=== PATIENT | male | born 1950 | race Caucasian/White ===

== ENCOUNTER 2017-10-10 17:58 | Inpatient (IN) | END 2017-10-11 18:26 | disposition home or self-care (01) | DRG 247 ==

== ENCOUNTER 2018-04-13 16:04 | Inpatient (IN) | payer MEDICARE, OTHER ==
[~2018-04-13] VITALS: Ht 172.7 cm; Wt 91.7 kg
[~2018-04-13 16:04] MED LIST: ACET-2047 PO; ASPI81TA52 PO; ATOR-2 PO; CARV12.579 NGT; GLIM1TAB2 PO; LINA1TAB5 PO; LISI-471 PO; LORA0.5T PO; NIFE30TA2 PO; NITR0.4T39 SL; Nicotine (14 Mg/24 Hr) TRANSDERM; TICA90TA PO; ZOLP5TAB7 PO
[2018-04-13] MEDS ORDERED: PANTOPRAZOLE IV 80 MG in SOD CHLORIDE 0.9% 100 ML IV STA (16:38)
[2018-04-13] MEDS ORDERED: SOD CHLORIDE 0.9% 500 ML IV STA (16:38)
[2018-04-13] MEDS ORDERED: PANTOPRAZOLE IV 80 MG in SOD CHLORIDE 0.9% 100 ML IVPB STA (16:38)
--- NOTE | 2018-04-13 17:04 | ERD ---
ER Documentation Chief Complaint Chief Complaint Black stool HPI This is a 67-year-old man who is here for melena. The patient states that he has had black stool for 7 days. He states that he is not taking iron, Pepto- Bismol. No blood in his stool. No abdominal pain. He does feel a bit weakness all over but no focal neurological complaints. ROS All systems reviewed and are negative except as per history of present illness. Medications Home Meds Active Scripts Ticagrelor* (Brilinta*) 90 Mg Tablet, 90 MG PO BID for 30 Days, TAB Prov:BRITT BETH MD 10/11/17 Glimepiride* (Glimepiride*) 1 Mg Tablet, 1 MG PO BID, #60 TAB Prov:BRITT BETH MD 10/11/17 Linagliptin-Metformin (Jentadueto) 2.5-1,000 Mg Tablet, 1 TAB PO BID for 60 Days, TAB Prov:BRITT BETH MD 10/11/17 Nifedipine (Procardia Xl) 30 Mg Tab.er.24, 30 MG PO DAILY for 30 Days, TAB Prov:BRITT BETH MD 10/11/17 Lisinopril* (Lisinopril*) 20 Mg Tablet, 20 MG PO BID, #60 TAB Prov:BRITT BETH MD 10/11/17 Carvedilol* (Carvedilol*) 12.5 Mg Tablet, 12.5 MG NGT BID for 30 Days, TAB Prov:BRITT BETH MD 10/11/17 Reported Medications Clopidogrel Bisulfate* (Clopidogrel Bisulfate*) 75 Mg Tablet, 75 MG PO DAILY, #30 TAB 04/13/18 Atorvastatin* (Atorvastatin*) 40 Mg Tablet, 40 MG PO QHS, #30 TAB 04/13/18 Meloxicam* (Mobic*) 15 Mg Tablet, 15 MG PO DAILY, #30 TAB 04/13/18 Aspirin (Low Dose Aspirin) 81 Mg Tablet.dr, 81 MG PO DAILY, #30 TAB 10/10/17 Discontinued Reported Medications Lorazepam* (Lorazepam*) 0.5 Mg Tablet, 0.5 MG PO Q4 PRN for ANXIETY, TAB 10/10/17 Nitroglycerin* (Nitrostat*) 0.4 Mg Tab.subl, 0.4 MG SL Q5MIN PRN for CHEST PAIN, BOTTLE 10/10/17 Acetaminophen* (Acetaminophen*) 650 Mg Tablet, 650 MG PO Q6H PRN for PAIN LEVEL 1-3, #30 TAB 10/10/17 Zolpidem Tartrate* (Zolpidem Tartrate*) 5 Mg Tablet, 5 MG PO QHS PRN for INSOMNIA, #30 TAB 10/10/17 Discontinued Scripts Atorvastatin* (Atorvastatin*) 80 Mg Tablet, 80 MG PO HS for 30 Days, TAB Prov:BRITT BETH MD 10/11/17 [Nicotine (14 Mg/24 Hr)] 1 PATCH PATCH No Conflict Check, 1 PATCH TRANSDERM DAILY for 30 Days Prov:BRITT BETH MD 10/11/17 Allergies Allergies: Coded Allergies: No Known Allergy (Unverified , 04/13/18) PMhx/Soc History of Surgery: No Anesthesia Reaction: No Hx Neurological Disorder: No Hx Respiratory Disorders: Yes (COPD) Hx Cardiac Disorders: Yes (HTN, OK) Hx Psychiatric Problems: No Hx Miscellaneous Medical Probl: No Hx Alcohol Use: No Hx Substance Use: No Hx Tobacco Use: Yes (3 PACKS A DAY) FmHx Family History: No coronary disease Physical Exam Vitals Vital Signs Date Temp Pulse Resp B/P (MAP) Pulse Ox O2 O2 Flow FiO2 Time Delivery Rate 04/13/18 99.0 114 18 123/63 97 16:35 (83) Physical Exam Const: Well-developed, well-nourished Head: Atraumatic, normocephalic Eyes: Normal Conjunctiva, PERRLA, EOMI, normal sclera, no nystagmus ENT: Normal External Ears, Nose and Mouth, moist mucus membranes. Neck: Full range of motion. No meningismus, no lymphadenopathy. Resp: Clear to auscultation bilaterally, no wheezing, rhonchi, rales Cardio: Regular rate and rhythm, no murmurs, S1 S2 present Abd: Soft, non tender x 4, non distended. Normal bowel sounds, no guarding or rebound, no pulsitile abdominal masses or bruits Skin: No petechiae or rashes, no ecchymosis , no maculopapular rash Back: No midline or flank tenderness Ext: No cyanosis, or edema, FROM x 4, normal inspection, neurovascularly intact x 4 Neur: Awake and alert, STR 5/5 x 4, sensation intact x 4, no focal findings, cerebellum intact Psych: Normal Mood and Affect Result Diagram: 04/13/18 1646 04/13/18 1646 Results 24 hrs Laboratory Tests Test 04/13/18 16:46 04/13/18 19:10 White Blood Count 13.1 10^3/ul Red Blood Count 2.30 10^6/ul Hemoglobin 7.3 g/dl Hematocrit 21.7 % Mean Corpuscular Volume 94.3 fl Mean Corpuscular Hemoglobin 31.7 pg Mean Corpuscular Hemoglobin Concent 33.6 g/dl Red Cell Distribution Width 14.7 % Platelet Count 329 10^3/UL Mean Platelet Volume 10.5 fl Immature Granulocytes % 3.100 % Neutrophils % 71.8 % Lymphocytes % 18.7 % Monocytes % 5.7 % Eosinophils % 0.3 % Basophils % 0.4 % Nucleated Red Blood Cells % 0.4 /100WBC Immature Granulocytes # 0.410 10^3/ul Neutrophils # 9.4 10^3/ul Lymphocytes # 2.4 10^3/ul Monocytes # 0.8 10^3/ul Eosinophils # 0.0 10^3/ul Basophils # 0.1 10^3/ul Nucleated Red Blood Cells # 0.1 10^3/ul Prothrombin Time 12.7 Sec Prothrombin Time Ratio 1.0 INR International Normalized Ratio 0.94 Activated Partial Thromboplast Time 21.3 Sec Sodium Level 134 mmol/L Potassium Level 4.8 mmol/L Chloride Level 101 mmol/L Carbon Dioxide Level 21 mmol/L Anion Gap 12 Blood Urea Nitrogen 27 mg/dl Creatinine 0.69 mg/dl Est Glomerular Filtrat Rate mL/min > 60 mL/min Glucose Level 329 mg/dl Calcium Level 8.5 mg/dl Total Bilirubin 0.2 mg/dl Direct Bilirubin 0.00 mg/dl Indirect Bilirubin 0.2 mg/dl Aspartate Amino Transf (AST/SGOT) 26 IU/L Alanine Aminotransferase (ALT/SGPT) 46 IU/L Alkaline Phosphatase 47 IU/L Total Protein 6.0 g/dl Albumin 3.7 g/dl Globulin 2.30 g/dl Albumin/Globulin Ratio 1.60 Bedside Glucose 389 mg/dL Current Medications Medications Dose Sig/Zain Start Time Status Last (Trade) Ordered Route PRN Stop Time Admin Dose Reason Admin Sodium 500 ml @ Q1H STAT 04/13/18 DC 04/13/18 Chloride 500 mls/hr IV 16:38 17:17 04/13/18 17:37 Pantoprazole 100 ml @ ONCE STAT 04/13/18 DC 04/13/18 80 mg/Sodium 400 mls/hr IVPB 16:38 17:18 Chloride 04/13/18 16:52 Pantoprazole 100 ml @ ONCE STAT 04/13/18 04/13/18 80 mg/Sodium 10 mls/hr IV 16:38 17:18 Chloride 04/14/18 02:37 Procedures/MDM Patient was found to be anemic with a hemoglobin of 7.2. I will type and cross 2 units and transfuse. We will admit the patient for GI bleed the patient is on Protonix IV bolus and drip. I paged Dr. Beth and will find out who he wants for GI. Will admit for upper GI bleed and anemia Departure Diagnosis: Primary Impression: GI bleed GI bleed type/associated pathology: unspecified gastrointestinal hemorrhage type Qualified Codes: K92.2 - Gastrointestinal hemorrhage, unspecified Additional Impression: Anemia Anemia type: unspecified type Qualified Codes: D64.9 - Anemia, unspecified Condition: Stable BOB VOGT DO Apr 13, 2018 17:04
[2018-04-13] MEDS ORDERED: ATOR40TA68 PO (17:40)
[2018-04-13] MEDS ORDERED: MELO15TA30 PO (17:40)
[2018-04-13] MEDS ORDERED: CLOP75TA19 PO (17:41)
[2018-04-13] MEDS ORDERED: SOD CHLORIDE 0.9% 1,000 ML IV SCH (19:27)
[2018-04-13] MEDS ORDERED: ACETAMINOPHEN 325 MG TAB PO PRN (19:30)
[2018-04-13] MEDS ORDERED: ONDANSETRON 4 MG INJ IV PRN (19:30)
[2018-04-13] MEDS ORDERED: SOD CHLORIDE 0.9% 1,000 ML IV STA (19:56)
[2018-04-14] VITALS (22 sets, daily range): BP systolic 102–163; BP diastolic 52–80; PULSE 9–118; RESP 16–26; Ht 172.7 cm; Wt 91.7 kg
[2018-04-14] MEDS ORDERED: ONDANSETRON 4 MG INJ IV PRN (01:30)
[2018-04-14] MEDS ORDERED: NACL 0.9% 3 ML SYG IV SCH (01:30)
[2018-04-14] MEDS ORDERED: GLUCAGON 1 MG INJ IM PRN (02:00)
[2018-04-14] MEDS ORDERED: DEXTROSE 50% 50 ML SYRINGE IV PRN ×2 (02:00)
[2018-04-14] MEDS: PANTOPRAZOLE IV 80 MG in SOD CHLORIDE 0.9% 100 ML IV SCH ×4 (02:00→22:00)
[2018-04-14] MEDS ORDERED: GLUCOSE GEL 15 GRAM TUBE PO PRN ×2 (02:00)
[2018-04-14] MEDS ORDERED: GLUCOSE GEL 15 GRAM TUBE BUCCAL PRN (02:00)
[2018-04-14] MEDS: SOD CHLORIDE 0.45% 1,000 ML IV SCH ×2 (02:29→11:36)
--- NOTE | 2018-04-14 07:19 | NUR ---
EOSS: S/P 2units of PRBC's given. No blood transfusion reaction noted or reported. On Protonix drip at this time. Urinalysis sent to lab. Patient inquiring when the GI doctor will come and see him. Dr. Parker called and wanted a consent for EGD with biopsy and to keep patient NPO.
--- NOTE | 2018-04-14 07:45 | CONS ---
Date/Time of Note Date/Time of Note DATE: 04/14/18 TIME: 07:33 Assessment/Plan Assessment/Plan Hospital Course 67 yo male on Brillinta and ASA presents for melena x 7 days 1. Upper GI bleed manifested through melanotic stools -pt on plavix last dose 04/12) and asa 2. Anemia secondary to GI bleed 3. Diabetes mellitus 4. Hypertension 5. H/O NSTEMI in September 2017 with PCI placement x 2 6. 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 Pt agrees to procedure but would like to wait to sign consent until his son arrives. Pt examined and plan of care discussed with Dr. Parker Result Diagram: 04/13/18 1646 04/13/18 1646 Results 24hrs Laboratory Tests Test 04/13/18 16:46 04/13/18 19:10 White Blood Count 13.1 H Red Blood Count 2.30 #L Hemoglobin 7.3 #L Hematocrit 21.7 #L Mean Corpuscular Volume 94.3 Mean Corpuscular Hemoglobin 31.7 Mean Corpuscular Hemoglobin Concent 33.6 Red Cell Distribution Width 14.7 H Platelet Count 329 # Mean Platelet Volume 10.5 H Immature Granulocytes % 3.100 H Neutrophils % 71.8 Lymphocytes % 18.7 Monocytes % 5.7 Eosinophils % 0.3 Basophils % 0.4 Nucleated Red Blood Cells % 0.4 H Immature Granulocytes # 0.410 H Neutrophils # 9.4 H Lymphocytes # 2.4 Monocytes # 0.8 Eosinophils # 0.0 Basophils # 0.1 Nucleated Red Blood Cells # 0.1 H Prothrombin Time 12.7 Prothrombin Time Ratio 1.0 INR International Normalized Ratio 0.94 Activated Partial Thromboplast Time 21.3 L Sodium Level 134 L Potassium Level 4.8 Chloride Level 101 Carbon Dioxide Level 21 Anion Gap 12 Blood Urea Nitrogen 27 H Creatinine 0.69 Est Glomerular Filtrat Rate mL/min > 60 Glucose Level 329 H Calcium Level 8.5 Total Bilirubin 0.2 Direct Bilirubin 0.00 Indirect Bilirubin 0.2 Aspartate Amino Transf (AST/SGOT) 26 Alanine Aminotransferase (ALT/SGPT) 46 Alkaline Phosphatase 47 Total Protein 6.0 L Albumin 3.7 Globulin 2.30 Albumin/Globulin Ratio 1.60 Bedside Glucose 389 H Consultation Date/Type/Reason Admit Date/Time Apr 13, 2018 at 19:28 Hx of Present Illness 67 yo male with h/o DM2, COPD, hypertension and DC in September 2017 with PCI of mid coronary artery, mid LAD presents with melena x 7 days. Pt takes Plavix and ASA at home, last dose 04/12, previously on Brillinta and ASA. Pt denies N/V. States he has intermittent epigastric pain which is burning in nature. He states although he had melena x 7 days he did not start feeling weak until yesterday. Denies CP or SOB. Denies fevers or chills. Denies lower or upper extremity weakness. Denies headaches or visual changes. Pt smokes 3 packs a day. His hgb/hct was 7.3/21.7, received two units prbc. WBC 13.1. INR 0.94 Tachycardia through out night in 110-118. This am HR 73. Protonix gtt. Dr Denny was his test examiner during last admission in September 2017. Past Medical History Medications Current Medications Sodium Chloride 1,000 ml @ 80 mls/hr [id number] IV ; Start 04/13/18 at 19:27; Stop 04/14/18 at 07:56 Ondansetron HCl (Zofran Inj) 4 mg ER BRIDGE PRN IV NAUSEA AND/OR VOMITING; Start 04/13/18 at 19:30; Stop 04/14/18 at 19:29 Acetaminophen (Tylenol Tab) 650 mg ER BRIDGE PRN PO MILD PAIN(1-3)OR ELEVATED TEMP; Start 04/13/18 at 19:30; Stop 04/14/18 at 19:29 Sodium Chloride 1,000 ml @ 75 mls/hr [id number] IV Last administered on 04/14/18at 02:29; Admin Dose 75 MLS/HR; Start 04/14/18 at 01:25 IV Flush (NS 3 ml) 3 ml PER PROTOCOL IV ; Start 04/14/18 at 01:30 Ondansetron HCl (Zofran Inj) 4 mg Q6H PRN IV NAUSEA AND/OR VOMITING; Start 04/14/18 at 01:30 Atorvastatin Calcium (Lipitor) 40 mg QHS PO ; Start 04/14/18 at 21:00 Carvedilol (Coreg) 12.5 mg BID NGT ; Start 04/14/18 at 09:00 Glimepiride (Amaryl) 1 mg BID PO ; Start 04/14/18 at 09:00 Lisinopril (Zestril) 20 mg BID PO ; Start 04/14/18 at 09:00 Nifedipine (Procardia Xl) 30 mg DAILY PO ; Start 04/14/18 at 09:00 Miscellaneous Information 1 tab BID PO ; Start 04/14/18 at 09:00; Status UNV Pantoprazole 80 mg/Sodium Chloride 100 ml @ 10 mls/hr Q10H IV Last administered on 04/14/18at 06:06; Admin Dose 10 MLS/HR; Start 04/14/18 at 02:00 Insulin Aspart (Novolog Insulin Pen) NOVOLOG *MILD* ALGORITHM WITH MEALS BEDTIME SC ; Start 04/14/18 at 07:55 Miscellaneous Information 1 ea NOTE XX ; Start 04/14/18 at 02:00 Glucose (Glutose) 15 gm Q15M PRN PO DECREASED GLUCOSE; Start 04/14/18 at 02:00 Glucose (Glutose) 22.5 gm Q15M PRN PO DECREASED GLUCOSE; Start 04/14/18 at 02:00 Dextrose (D50w Syringe) 25 ml Q15M PRN IV DECREASED GLUCOSE; Start 04/14/18 at 02:00 Dextrose (D50w Syringe) 50 ml Q15M PRN IV DECREASED GLUCOSE; Start 04/14/18 at 02:00 Glucagon (Glucagen) 1 mg Q15M PRN IM DECREASED GLUCOSE; Start 04/14/18 at 02:00 Glucose (Glutose) 15 gm Q15M PRN BUCCAL DECREASED GLUCOSE; Start 04/14/18 at 02:00 Allergies: Coded Allergies: No Known Allergy (Unverified , 04/13/18) Social History Smoking Status: Former smoker Exam/Review of Systems Vital Signs Vitals Vital Signs Date Temp Pulse Resp B/P (MAP) Pulse Ox O2 O2 Flow FiO2 Time Delivery Rate 04/14/18 98.4 78 16 108/53 97 07:26 (71) 04/13/18 Room Air 23:32 Intake and Output 12/27/18 12/27/18 12/28/18 1515:00 23:00 07:00 IntakeIntake Total 633 ml 821 ml OutputOutput Total 350 ml BalanceBalance 633 ml 471 ml Exam Constitutional: alert, oriented Psych: no complaints Head: normocephalic Eyes: nl sclera, PERRL ENMT: mucosa pink and moist Respiratory: clear to auscultation, diminished breath sounds Cardiovascular: regular rate and rhythm Gastrointestinal: soft, non-tender Musculoskeletal: nl gait and stance Extremities: normal pulses Neurological: nl mental status, nl speech Medications Medications Current Medications Sodium Chloride 1,000 ml @ 80 mls/hr [id number] IV ; Start 04/13/18 at 19:27; Stop 04/14/18 at 07:56 Ondansetron HCl (Zofran Inj) 4 mg ER BRIDGE PRN IV NAUSEA AND/OR VOMITING; Start 04/13/18 at 19:30; Stop 04/14/18 at 19:29 Acetaminophen (Tylenol Tab) 650 mg ER BRIDGE PRN PO MILD PAIN(1-3)OR ELEVATED TEMP; Start 04/13/18 at 19:30; Stop 04/14/18 at 19:29 Sodium Chloride 1,000 ml @ 75 mls/hr [id number] IV Last administered on 04/14/18at 02:29; Admin Dose 75 MLS/HR; Start 04/14/18 at 01:25 IV Flush (NS 3 ml) 3 ml PER PROTOCOL IV ; Start 04/14/18 at 01:30 Ondansetron HCl (Zofran Inj) 4 mg Q6H PRN IV NAUSEA AND/OR VOMITING; Start 04/14/18 at 01:30 Atorvastatin Calcium (Lipitor) 40 mg QHS PO ; Start 04/14/18 at 21:00 Carvedilol (Coreg) 12.5 mg BID NGT ; Start 04/14/18 at 09:00 Glimepiride (Amaryl) 1 mg BID PO ; Start 04/14/18 at 09:00 Lisinopril (Zestril) 20 mg BID PO ; Start 04/14/18 at 09:00 Nifedipine (Procardia Xl) 30 mg DAILY PO ; Start 04/14/18 at 09:00 Miscellaneous Information 1 tab BID PO ; Start 04/14/18 at 09:00; Status UNV Pantoprazole 80 mg/Sodium Chloride 100 ml @ 10 mls/hr Q10H IV Last administered on 04/14/18at 06:06; Admin Dose 10 MLS/HR; Start 04/14/18 at 02:00 Insulin Aspart (Novolog Insulin Pen) NOVOLOG *MILD* ALGORITHM WITH MEALS BEDTIME SC ; Start 04/14/18 at 07:55 Miscellaneous Information 1 ea NOTE XX ; Start 04/14/18 at 02:00 Glucose (Glutose) 15 gm Q15M PRN PO DECREASED GLUCOSE; Start 04/14/18 at 02:00 Glucose (Glutose) 22.5 gm Q15M PRN PO DECREASED GLUCOSE; Start 04/14/18 at 02:00 Dextrose (D50w Syringe) 25 ml Q15M PRN IV DECREASED GLUCOSE; Start 04/14/18 at 02:00 Dextrose (D50w Syringe) 50 ml Q15M PRN IV DECREASED GLUCOSE; Start 04/14/18 at 02:00 Glucagon (Glucagen) 1 mg Q15M PRN IM DECREASED GLUCOSE; Start 04/14/18 at 02:00 Glucose (Glutose) 15 gm Q15M PRN BUCCAL DECREASED GLUCOSE; Start 04/14/18 at 02:00 GIOVANNI WEST Apr 14, 2018 07:44
[2018-04-14] MEDS: metFORMIN 500 MG TAB PO SCH ×2 (07:55→17:22)
[2018-04-14] MEDS: LINAGLIPTIN 5 MG TABLET PO SCH ×2 (07:55→17:22)
[2018-04-14] MEDS: GLIMEPIRIDE 2 MG TAB PO SCH ×2 (08:02→20:35)
[2018-04-14] MEDS: NIFEdipine (XL) 30 MG TAB PO SCH (08:53)
[2018-04-14] MEDS: LISINOPRIL 20 MG TAB PO SCH ×2 (08:53→20:36)
[2018-04-14] MEDS ORDERED: LINAGLIPTIN METFORMIN PO SCH (09:00)
[2018-04-14] MEDS: INSULIN ASPART [NOVOLOG] 3 ML PEN SC SCH ×4 (09:35→20:46)
--- NOTE | 2018-04-14 10:17 | NUR ---
AM ASSESSMENT AM ASSESSMENT AND CHANGE OF SHIFT CHARTED AT 1013 FOR 0710
[2018-04-14] MEDS ORDERED: PROPOFOL 40 ML ONE (14:32)
--- NOTE | 2018-04-14 14:52 | NUR ---
PACU PT AWAKE ALERT ROOM AIR NO C/O PAIN NO ACTIVE BLEEDINFHAS IV SITE ON LT AC 22 LILLIAN AND LT WRIST 20 LILLIAN SITE CLEAR
--- NOTE | 2018-04-14 15:40 | NUR ---
PACU PT AWAKE ALERT ROOM AIR NO C/O PAIN BLOOD SUGER WAS CHECKED AND WAS [address] SOY YUEN WAS NOTIFIED REPORT GIVEN TO ROSALVA YUEN NO RESP DISTRESS NO C/O PAIN NO BLEEDING
--- NOTE | 2018-04-14 18:04 | NUR ---
END OF SHIFT DENIES PAIN, EATING DINNER, STABLE FOR HANDOFF
--- NOTE | 2018-04-14 18:17 | CONS ---
DATE OF ADMISSION: 04/13/2018 DATE OF CONSULTATION: 04/14/2018 REASON FOR CONSULTATION: Preoperative evaluation. REQUESTING PHYSICIAN: Dr. Parker and Dr. Martin. HISTORY OF PRESENT ILLNESS: Mr. Barnett is a 67-year-old male with a history of diabetes mellitus , hypertension, recent [id number]-qhkovmonx myocardial infarction in 09/2017 and subsequently at that noemi e underwent PTCA and stent placement x1 to right coronary artery and x1 to mid LAD with drug-eluting stent, was placed on aspirin and Brilinta. The patient now re-presents with melenic stools. Initial ly upon arrival, temperature 99, blood pressure 122/63, pulse 142, respiratory rate 18, saturating 92 %. The patient's labs are notable for white count of 13.1, hemoglobin of 7.3, MCV of 94.3, platelet count of 329; sodium 134, potassium 4.8, creatinine 0.6, BUN 27; INR of 0.94. The patient subsequent ly admitted to the floor, and since admit to the floor denied chest pain and shortness of breath. PAST MEDICAL HISTORY: As above in HPI. MEDICATIONS CURRENTLY IN HOSPITAL: 1. Lipitor 40 mg at bedtime. 2. Carvedilol 12.5 mg p.o. b.i.d. 3. Zestril 20 mg p.o. b.i.d. 4. Procardia 30 mg daily. 5. Tradjenta. 6. Metformin. 7. IV fluid hydration at 50 mL at hour. 8. Aspirin and Brilinta held. ALLERGIES: NO KNOWN DRUG ALLERGIES. SOCIAL HISTORY: Prior tobacco intake. Social EtOH. No illicit drug use. FAMILY HISTORY: No history of sudden cardiac or early CAD. REVIEW OF SYSTEMS: As above in HPI. CONSTITUTIONAL: No fevers or chills. PULMONARY: No current shortness of breath. CARDIOVASCULAR: No chest pain. GASTROINTESTINAL: No vomiting, but GI bleed. GENITOURINARY: No hematuria. MUSCULOSKELETAL: Degenerative joint disease. PSYCHIATRIC: No documented psych history. NEUROLOGIC: No documented history of CVA. ENDOCRINE: Positive history of diabetes mellitus. PHYSICAL EXAMINATION: VITAL SIGNS: Temperature of 98, blood pressure most recently 163/75, pulse 98, respiratory rate 18, saturating 95%. GENERAL: The patient is alert, awake, no acute distress. NECK: JVP approximately 8 to 9 cm of water. CHEST: Fair air movement throughout. HEART: Regular rate and rhythm, normal S1 and S2, I/ systolic murmur, nondisplaced PMI. ABDOMEN: Positive bowel sounds, soft. EXTREMITIES: No significant pitting edema, 1+ pulses bilateral posterior tibial. LABORATORIES: As above in HPI. No further labs for my review at this time. IMAGING STUDIES: As above in HPI. No further imaging studies for my review at this time. ECG: No further electrocardiograms for my review at this time. IMPRESSION: 1. Preoperative evaluation prior to endoscopy. 2. History of percutaneous transluminal coronary angioplasty and stent placement in 09/2017. 3. Gastrointestinal bleed, presenting with melenic stools. 4. Hypertension, currently uncontrolled with holding of antihypertensives. 5. Dyslipidemia. 6. Diabetes mellitus. RECOMMENDATIONS: 1. At this time, we would maintain the patient on telemetry monitoring to follow rhythm and rate con trol closely. 2. We would complete a rule out for myocardial infarction ____ any acute coronary syndrome in the se tting of anemia. 3. Check a 2D echo to further assess this patient's ejection fraction, wall motion, rule out any vitor or abnormalities. 4. ____ at this time has no chest pain, hemodynamically stable. The patient is okay to proceed to e ndoscopy at this time at moderate cardiovascular risk. 5. We would resume all the patient's baseline antihypertensives after endoscopy with Zestril, Procar farrah, and carvedilol. Follow blood pressure closely thereafter. 6. Check a fasting lipid panel and adjust the patient's statin therapy as necessary. 7. Reinitiate Brilinta and aspirin when okay per treating GI service. Thank you for allowing me to take part in the care of this patient. I will continue to follow along very closely with you with further recommendations to be made as the patient progresses through his [facility] clinical course. Dictated By: JANET PAYNE/DENISSE Conf#: [id number] DID#: [id number] CC: IRVING GLASGOW MD; FRANCISCA MARTIN DO; REMI PARKER MD;*EndCC*
--- NOTE | 2018-04-14 19:53 | CONS ---
DATE OF ADMISSION: 04/13/2018 DATE OF CONSULTATION: 04/14/2018 CHIEF COMPLAINT: Gastrointestinal bleed. HISTORY OF PRESENT ILLNESS: This is a 67-year-old male with a past medical history of coronary arter y disease status post PCI, history of diabetes, history of hypertension who presented to [facility] complaining of dark stools for the last seven days and bright red blood one day prio r to admission. The patient states for the last seven days, he has noted dark tarry stools. He had no abdominal pain, no hemoptysis, and no hematemesis. The patient also noted one day prior to admiss ion that he had bright red blood per rectum and as a result, he came to Emergency Room. Upon arrival , the patient had laboratory data that showed hemoglobin of 7.3. The patient was typed and crossed a nd transfused two units of PRBC. The patient was also placed on Protonix drip. Upon my evaluation of the patient at this time, he is currently stable. Denies any fevers, chills, n ausea, vomiting. The patient states that he has been taking his antiplatelet therapy and had no prev ious episodes of GI bleed in the past. PAST MEDICAL HISTORY: History of diabetes, history of hypertension, history of coronary artery disea se, history of chronic obstructive pulmonary disease. PAST SURGICAL HISTORY: Status post cardiac catheterization and PCI. FAMILY HISTORY: No family history of kidney disease. SOCIAL HISTORY: Positive tobacco use. MEDICATIONS: The patient's medications have been reviewed and reconciled. REVIEW OF SYSTEMS: A 14-point review of systems was conducted. Pertinent positives stated in HPI, o therwise negative. PHYSICAL EXAMINATION: VITAL SIGNS: Blood pressure 125/56, respiratory rate 20, pulse 94, temperature 98.6. HEENT: Head normocephalic. NECK: Supple. HEART: Regular rate. LUNGS: Show diminished breath sounds at base. ABDOMEN: Soft, nontender to palpation, without rebound or guarding. EXTREMITIES: Negative for clubbing, cyanosis, edema. DERMATOLOGIC: No rashes. MUSCULOSKELETAL: No joint effusions. NEUROLOGIC: No focal deficits. LABORATORY DATA: Shows white count 10.9, hemoglobin 10.9, and platelet count 225. Sodium 136, potas sium 4.2, BUN 22, creatinine 0.75, glucose is 73. ASSESSMENT AND PLAN: This is a 67-year-old male presenting with: 1. Acute gastrointestinal bleed. Etiology may be secondary to peptic ulcer disease in conjunction w ith antiplatelet therapy. At this point, he is to have a GI consult for possible EGD. Continue carolyn ent on Protonix drip. We will hold anticoagulation antiplatelet therapy at this time. Monitor hemog lobin and hematocrit levels closely. Continue PRBCs as needed. 2. Anemia secondary to acute gastrointestinal bleed. The patient is status post blood transfusion. Continue to monitor hemoglobin and hematocrit levels. Followup with GI. 3. Coronary artery disease with the history of percutaneous coronary intervention and stent placemen t. Plan at this point is to hold antiplatelet therapy. A cardiology consult has been placed for fur ther evaluation. We will follow up recommendations. Monitor closely. 5. Hypertension. Continue current blood pressure regimen. 6. Diabetes. Continue current insulin regimen. 7. History of tobacco use. Continue to monitor. 8. History of chronic obstructive pulmonary disease. The patient is currently compensated. Continu e medical management. Continue nebulizer, supplemental oxygen as needed. 9. Jaundice prophylaxis. Continue proton pump inhibitor and sequential leg squeezers. 10. Leukocytosis, systemic inflammatory response syndrome, etiology is likely reactive. No obvious evidence of infection. Continue to monitor. In addition to pertinent to face time with the patient. Code status and directives. The patient is FULL CODE. Dictated By: FRANCISCA MARTIN DO NR/NTS Conf#: [id number] DID#: [id number] CC: IRVING GLASGOW MD;*EndCC*
[2018-04-14] MEDS: ATORVASTATIN 40 MG TAB PO SCH (20:36)
[2018-04-14] MEDS ORDERED: ZOLPIDEM 5 MG TAB PO PRN (22:30)
[2018-04-15] VITALS (11 sets, daily range): BP systolic 88–117; BP diastolic 48–58; PULSE 69–110; RESP 18–20
[2018-04-15] MEDS: SOD CHLORIDE 0.45% 1,000 ML IV SCH
[2018-04-15] MEDS: PANTOPRAZOLE IV 80 MG in SOD CHLORIDE 0.9% 100 ML IV SCH ×2 (04:16→17:21)
--- NOTE | 2018-04-15 06:32 | NUR ---
HGB 6.8. NOTIFIED DR ALBRECHT. AWAITS REPLY. VS REMAINS STABLE. PT DENIES ANY PAIN. WILL CONTINUE TO MONITOR
[2018-04-15] MEDS: metFORMIN 500 MG TAB PO SCH ×2 (07:52→17:21)
[2018-04-15] MEDS: LINAGLIPTIN 5 MG TABLET PO SCH ×2 (07:52→17:21)
[2018-04-15] MEDS: INSULIN ASPART [NOVOLOG] 3 ML PEN SC SCH ×4 (07:58→20:24)
--- NOTE | 2018-04-15 08:55 | PN ---
Date/Time of Note Date/Time of Note DATE: 04/15/18 TIME: 08:53 Assessment/Plan VTE Prophylaxis Risk score (from Nsg)>0 risk: 7 SCD applied (from Nsg): Yes Pharmacological prophylaxis: other Lines/Catheters IV Catheter Type (from Nrsg): Peripheral IV Assessment/Plan Hospital Course HISTORY OF PRESENT ILLNESS: This is a 67-year-old male with a past medical history of coronary artery disease status post PCI, history of diabetes, history of hypertension who presented to [facility] complaining of dark stools for the last seven days and bright red blood one day prior to admission. The patient states for the last seven days, he has noted dark tarry stools. He had no abdominal pain, no hemoptysis, and no hematemesis. The patient also noted one day prior to admission that he had bright red blood per rectum and as a result, he came to Emergency Room. Upon arrival, the patient had laboratory data that showed hemoglobin of 7.3. The patient was typed and crossed and transfused two units of PRBC. The patient was also placed on Protonix drip. Denies any fevers, chills, nausea, vomiting. The patient states that he has been taking his antiplatelet therapy and had no previous episodes of GI bleed in the past. PAST MEDICAL HISTORY: History of diabetes, history of hypertension, history of coronary artery disease, history of chronic obstructive pulmonary disease. PAST SURGICAL HISTORY: Status post cardiac catheterization and PCI. FAMILY HISTORY: No family history of kidney disease. SOCIAL HISTORY: Positive tobacco use. MEDICATIONS: The patient's medications have been reviewed and reconciled. REVIEW OF SYSTEMS: A 14-point review of systems was conducted. Pertinent positives stated in HPI, otherwise negative. PHYSICAL EXAMINATION: HEENT: Head normocephalic. NECK: Supple. HEART: Regular rate. LUNGS: Show diminished breath sounds at base. ABDOMEN: Soft, nontender to palpation, without rebound or guarding. EXTREMITIES: Negative for clubbing, cyanosis, edema. DERMATOLOGIC: No rashes. MUSCULOSKELETAL: No joint effusions. NEUROLOGIC: No focal deficits. ASSESSMENT AND PLAN: This is a 67-year-old male presenting with: 1. Acute gastrointestinal bleed. Etiology may be secondary to peptic ulcer disease in conjunction with antiplatelet therapy. GI is following the patient. Continue patient on Protonix drip. We will hold anticoagulation antiplatelet therapy at this time until cleared by GI. will transfuse one unit prbc 2. Anemia secondary to acute gastrointestinal bleed. 3. Coronary artery disease with the history of percutaneous coronary intervention and stent placement. Plan at this point is to hold antiplatelet therapy. A cardiology consult has been placed for further evaluation. We will follow up recommendations. Monitor closely. 5. Hypertension. Continue current blood pressure regimen. 6. Diabetes. Continue current insulin regimen. 7. History of tobacco use. Continue to monitor. 8. History of chronic obstructive pulmonary disease. The patient is currently compensated. Continue medical management. Continue nebulizer, supplemental oxygen as needed. 9. Jaundice prophylaxis. Continue proton pump inhibitor and sequential leg squeezers. 10. Leukocytosis, systemic inflammatory response syndrome, etiology is likely reactive. No obvious evidence of infection. Continue to monitor. Result Diagram: 04/15/18 0546 04/15/18 0546 Results 24hrs Laboratory Tests Test 04/14/18 09:53 04/14/18 11:35 04/14/18 16:59 04/14/18 17:24 White Blood 10.9 H Count Red Blood Count 2.59 L Hemoglobin 7.9 L Hematocrit 23.1 L Mean Corpuscular 89.2 Volume Mean Corpuscular 30.5 Hemoglobin Mean Corpuscular 34.2 Hemoglobin Tamia nt Red Cell 15.0 H Distribution Width Platelet Count 225 # Mean Platelet 10.6 H Volume Immature 2.000 H Granulocytes % Neutrophils % 71.9 Lymphocytes % 15.9 Monocytes % 9.7 Eosinophils % 0.2 Basophils % 0.3 Nucleated Red 0.7 H Blood Cells % Immature 0.220 H Granulocytes # Neutrophils # 7.8 H Lymphocytes # 1.7 Monocytes # 1.1 H Eosinophils # 0.0 Basophils # 0.0 Nucleated Red 0.1 H Blood Cells # Sodium Level 136 Potassium Level 4.2 Chloride Level 104 Carbon Dioxide 25 Level Anion Gap 7 Blood Urea 22 H Nitrogen Creatinine 0.75 Est Glomerular > 60 Filtrat Rate mL/min Glucose Level 273 H Calcium Level 8.3 L Total Bilirubin 0.3 Direct Bilirubin 0.00 Indirect 0.3 Bilirubin Aspartate Amino 18 Transf (AST/SGOT ) Alanine 38 Aminotransferase (ALT/SGPT) Alkaline 37 L Phosphatase Total Protein 5.3 L Albumin 3.1 L Globulin 2.20 Albumin/Globulin 1.40 Ratio Bedside Glucose 290 H 242 H Troponin I < 0.012 Test 04/14/18 20:33 04/15/18 00:43 04/15/18 01:43 04/15/18 05:46 Bedside Glucose 238 H 113 Troponin I < 0.012 < 0.012 White Blood 8.8 Count Red Blood Count 2.25 L Hemoglobin 6.8 *L Hematocrit 20.9 L Mean Corpuscular 92.9 Volume Mean Corpuscular 30.2 Hemoglobin Mean Corpuscular 32.5 Hemoglobin Tamia nt Red Cell 15.9 H Distribution Width Platelet Count 193 Mean Platelet 10.2 Volume Immature 3.400 H Granulocytes % Neutrophils % Lymphocytes % Monocytes % Eosinophils % Basophils % Nucleated Red 0.8 H Blood Cells % Immature 0.300 H Granulocytes # Neutrophils # Lymphocytes # Monocytes # Eosinophils # Basophils # Nucleated Red Blood Cells # Sodium Level 140 Potassium Level 4.2 Chloride Level 104 Carbon Dioxide 27 Level Anion Gap 9 Blood Urea 19 Nitrogen Creatinine 0.87 Est Glomerular > 60 Filtrat Rate mL/min Glucose Level 155 # Hemoglobin A1c 7.0 H Calcium Level 8.4 Phosphorus Level 3.7 Magnesium Level 1.8 Total Bilirubin 0.2 Direct Bilirubin 0.00 Indirect 0.2 Bilirubin Aspartate Amino 19 Transf (AST/SGOT ) Alanine 41 Aminotransferase (ALT/SGPT) Alkaline 32 L Phosphatase Total Protein 4.8 L Albumin 2.9 L Globulin 1.90 Albumin/Globulin 1.52 Ratio Triglycerides 208 H Level Cholesterol 96 L Level LDL Cholesterol, 34 Calculated HDL Cholesterol 20 L Cholesterol/HDL 4.8 Ratio Free Thyroxine 3.61 Index Thyroxine (T4) 8.7 Triiodothyronine 41.5 H (T3) Uptake Test 04/15/18 07:45 Bedside Glucose 282 H Exam/Review of Systems Vital Signs Vitals Vital Signs Date Temp Pulse Resp B/P (MAP) Pulse Ox O2 O2 Flow FiO2 Time Delivery Rate 04/15/18 108 08:16 04/15/18 98.6 18 113/58 95 Room Air 07:30 (76) Intake and Output 04/14/18 04/14/18 04/15/18 1515:00 23:00 07:00 IntakeIntake Total 960 ml 700 ml OutputOutput Total 580 ml 1000 ml BalanceBalance 380 ml -300 ml Medications Medications Current Medications Sodium Chloride 1,000 ml @ 50 mls/hr Q20H IV Last administered on 04/15/18at 00:00; Admin Dose 50 MLS/HR; Start 04/14/18 at 01:25 IV Flush (NS 3 ml) 3 ml PER PROTOCOL IV ; Start 04/14/18 at 01:30 Ondansetron HCl (Zofran Inj) 4 mg Q6H PRN IV NAUSEA AND/OR VOMITING; Start 04/14/18 at 01:30 Atorvastatin Calcium (Lipitor) 40 mg QHS PO Last administered on 04/14/18at 20:36; Admin Dose 40 MG; Start 04/14/18 at 21:00 Carvedilol (Coreg) 12.5 mg BID NGT Last administered on 04/14/18at 20:35; Admin Dose 12.5 MG; Start 04/14/18 at 09:00 Glimepiride (Amaryl) 1 mg BID PO Last administered on 04/14/18at 20:35; Admin Dose 1 MG; Start 04/14/18 at 09:00 Lisinopril (Zestril) 20 mg BID PO Last administered on 04/14/18at 20:36; Admin Dose 20 MG; Start 04/14/18 at 09:00 Nifedipine (Procardia Xl) 30 mg DAILY PO ; Start 04/14/18 at 09:00 Pantoprazole 80 mg/Sodium Chloride 100 ml @ 10 mls/hr Q10H IV Last admin istered on 04/15/18at 04:16; Admin Dose 10 MLS/HR; Start 04/14/18 at 02:00 Insulin Aspart (Novolog Insulin Pen) NOVOLOG *MILD* ALGORITHM WITH MEALS BEDTIME SC Last administered on 04/15/18at 07:58; Admin Dose 4 UNIT; Start 04/14/18 at 07:55 Miscellaneous Information 1 ea NOTE XX ; Start 04/14/18 at 02:00 Glucose (Glutose) 15 gm Q15M PRN PO DECREASED GLUCOSE; Start 04/14/18 at 02:00 Glucose (Glutose) 22.5 gm Q15M PRN PO DECREASED GLUCOSE; Start 04/14/18 at 02:00 Dextrose (D50w Syringe) 25 ml Q15M PRN IV DECREASED GLUCOSE; Start 04/14/18 at 02:00 Dextrose (D50w Syringe) 50 ml Q15M PRN IV DECREASED GLUCOSE; Start 04/14/18 at 02:00 Glucagon (Glucagen) 1 mg Q15M PRN IM DECREASED GLUCOSE; Start 04/14/18 at 02:00 Glucose (Glutose) 15 gm Q15M PRN BUCCAL DECREASED GLUCOSE; Start 04/14/18 at 02:00 Linagliptin (Tradjenta) 2.5 mg BID WITH MEALS PO Last administered on 04/15/18 07:52; Admin Dose 2.5 MG; Start 04/14/18 at 07:55 Metformin HCl (Glucophage) 1,000 mg BID WITH MEALS PO Last administered on 04/15/18 07:52; Admin Dose 1,000 MG; Start 04/14/18 at 07:55 Zolpidem Tartrate (Ambien) 5 mg HS PRN PO INSOMNIA Last administered on 04/14/18at 22:39; Admin Dose 5 MG; Start 04/14/18 at 22:30 CHRISTIANO RAE DO Apr 15, 2018 08:55
[2018-04-15] MEDS: GLIMEPIRIDE 2 MG TAB PO SCH ×2 (08:59→20:17)
[2018-04-15] MEDS: LISINOPRIL 20 MG TAB PO SCH ×2 (09:00→20:17)
[2018-04-15] MEDS: NIFEdipine (XL) 30 MG TAB PO SCH (09:00)
[2018-04-15] MEDS ORDERED: ZOLPIDEM 5 MG TAB PO PRN (09:00)
--- NOTE | 2018-04-15 15:27 | CONS ---
Date/Time of Note Date/Time of Note DATE: 04/15/18 TIME: 15:26 Assessment/Plan Assessment/Plan Assessment/Plan Hospital Course 67 yo male on Brillinta and ASA presents for melena x 7 days 1. Upper GI bleed manifested through melanotic stools -pt on plavix last dose 04/12) and asa 2. Anemia secondary to GI bleed 3. Diabetes mellitus 4. Hypertension 5. H/O NSTEMI in September 2017 with PCI placement x 2 6. COPD Plan Continue double dose of PPI We will add Carafate to the present regimen Monitor H&H closely No aspirin or Plavix for the time being Result Diagram: 04/15/18 0546 04/15/18 0546 Results 24hrs Laboratory Tests Test 04/14/18 16:59 04/14/18 17:24 04/14/18 20:33 04/15/18 00:43 Bedside Glucose 242 H 238 H Troponin I < 0.012 < 0.012 Test 04/15/18 01:43 04/15/18 05:46 04/15/18 07:45 04/15/18 12:03 Bedside Glucose 113 282 H 153 White Blood 8.8 Count Red Blood Count 2.25 L Hemoglobin 6.8 *L Hematocrit 20.9 L Mean Corpuscular 92.9 Volume Mean Corpuscular 30.2 Hemoglobin Mean Corpuscular 32.5 Hemoglobin Tamia nt Red Cell 15.9 H Distribution Width Platelet Count 193 Mean Platelet 10.2 Volume Immature 3.400 H Granulocytes % Neutrophils % Segmented 74 Neutrophils % (Manual) Band Neutrophils 4 % (Manual) Lymphocytes % Lymphocytes % 14 L (Manual) Monocytes % Monocytes % 4 (Manual) Eosinophils % Eosinophils % 3 (Manual) Basophils % Myelocytes % 1 H (Manual) Nucleated Red 4 H Blood Cells % Immature 0.300 H Granulocytes # Neutrophils # Neutrophils # 6.5 (Manual) Band Neutrophils 0.3 # Lymphocytes 1.2 (Manual) Lymphocytes # Monocytes # Monocytes # 0.3 (Manual) Eosinophils # Basophils # Myelocytes # 0.0 Nucleated Red Blood Cells # Platelet NORMAL Estimate Polychromasia 2+ Anisocytosis 2+ Sodium Level 140 Potassium Level 4.2 Chloride Level 104 Carbon Dioxide 27 Level Anion Gap 9 Blood Urea 19 Nitrogen Creatinine 0.87 Est Glomerular > 60 Filtrat Rate mL/min Glucose Level 155 # Hemoglobin A1c 7.0 H Calcium Level 8.4 Phosphorus Level 3.7 Magnesium Level 1.8 Total Bilirubin 0.2 Direct Bilirubin 0.00 Indirect 0.2 Bilirubin Aspartate Amino 19 Transf (AST/SGOT ) Alanine 41 Aminotransferase (ALT/SGPT) Alkaline 32 L Phosphatase Troponin I < 0.012 Total Protein 4.8 L Albumin 2.9 L Globulin 1.90 Albumin/Globulin 1.52 Ratio Triglycerides 208 H Level Cholesterol 96 L Level LDL Cholesterol, 34 Calculated HDL Cholesterol 20 L Cholesterol/HDL 4.8 Ratio Free Thyroxine 3.61 Index Thyroxine (T4) 8.7 Triiodothyronine 41.5 H (T3) Uptake Consultation Date/Type/Reason Admit Date/Time Apr 13, 2018 at 19:28 Initial Consult Date 24 HR Interval Summary Free Text/Dictation Patient had one episode of melanotic stool, but he clinically feels much better than yesterday Constitutional: improved Exam/Review of Systems Vital Signs Vitals Vital Signs Date Temp Pulse Resp B/P (MAP) Pulse Ox O2 O2 Flow FiO2 Time Delivery Rate 04/15/18 103 12:05 04/15/18 98.3 18 108/57 95 Room Air 11:36 (74) Intake and Output 04/14/18 04/14/18 04/15/18 1515:00 23:00 07:00 IntakeIntake Total 960 ml 700 ml OutputOutput Total 580 ml 1000 ml BalanceBalance 380 ml -300 ml Exam Constitutional: alert, oriented, well developed Psych: no complaints, nl mood/affect Head: normocephalic, atraumatic Eyes: nl conjunctiva, EOMI, nl lids, nl sclera, PERRL ENMT: nl external ears & nose, nl lips & teeth, nl nasal mucosa & septum Neck: supple, non-tender Respiratory: clear to auscultation, normal air movement Cardiovascular: regular rate and rhythm, nl pulses Gastrointestinal: soft, nl liver, spleen, non-tender Musculoskeletal: nl extremities to inspection, nl gait and stance Extremities: normal pulses Neurological: [employer] CL[employer] II-XII intact, nl mental status, nl speech, nl strength Skin: nl turgor; No rash or lesions Lymph: nl lymph nodes Medications Medications Current Medications Sodium Chloride 1,000 ml @ 50 mls/hr Q20H IV Last administered on 04/15/18at 00:00; Admin Dose 50 MLS/HR; Start 04/14/18 at 01:25 IV Flush (NS 3 ml) 3 ml PER PROTOCOL IV ; Start 04/14/18 at 01:30 Ondansetron HCl (Zofran Inj) 4 mg Q6H PRN IV NAUSEA AND/OR VOMITING; Start 1 06/15/17 at 01:30 Atorvastatin Calcium (Lipitor) 40 mg QHS PO Last administered on 04/14/18at 20:36; Admin Dose 40 MG; Start 04/14/18 at 21:00 Carvedilol (Coreg) 12.5 mg BID NGT Last administered on 04/15/18at 08:59; Admin Dose 12.5 MG; Start 04/14/18 at 09:00 Glimepiride (Amaryl) 1 mg BID PO Last administered on 04/15/18at 08:59; Admin Dose 1 MG; Start 04/14/18 at 09:00 Lisinopril (Zestril) 20 mg BID PO Last administered on 04/15/18at 09:00; Admin Dose 20 MG; Start 04/14/18 at 09:00 Nifedipine (Procardia Xl) 30 mg DAILY PO Last administered on 04/15/18at 09:00; Admin Dose 30 MG; Start 04/14/18 at 09:00 Pantoprazole 80 mg/Sodium Chloride 100 ml @ 10 mls/hr Q10H IV Last administere d on 04/15/18at 04:16; Admin Dose 10 MLS/HR; Start 04/14/18 at 02:00 Insulin Aspart (Novolog Insulin Pen) NOVOLOG *MILD* ALGORITHM WITH MEALS BEDTIME SC Last administered on 04/15/18at 12:22; Admin Dose 1 UNIT; Start 04/14/18 at 07:55 Miscellaneous Information 1 ea NOTE XX ; Start 04/14/18 at 02:00 Glucose (Glutose) 15 gm Q15M PRN PO DECREASED GLUCOSE; Start 04/14/18 at 02:00 Glucose (Glutose) 22.5 gm Q15M PRN PO DECREASED GLUCOSE; Start 04/14/18 at 02:00 Dextrose (D50w Syringe) 25 ml Q15M PRN IV DECREASED GLUCOSE; Start 04/14/18 at 02:00 Dextrose (D50w Syringe) 50 ml Q15M PRN IV DECREASED GLUCOSE; Start 04/14/18 at 02:00 Glucagon (Glucagen) 1 mg Q15M PRN IM DECREASED GLUCOSE; Start 04/14/18 at 02:00 Glucose (Glutose) 15 gm Q15M PRN BUCCAL DECREASED GLUCOSE; Start 04/14/18 at 02:00 Linagliptin (Tradjenta) 2.5 mg BID WITH MEALS PO Last administered on 04/15/18at 07:52; Admin Dose 2.5 MG; Start 04/14/18 at 07:55 Metformin HCl (Glucophage) 1,000 mg BID WITH MEALS PO Last administered on 04/15/18at 07:52; Admin Dose 1,000 MG; Start 04/14/18 at 07:55 Zolpidem Tartrate (Ambien) 5 mg HS PRN PO INSOMNIA Last administered on 04/14/18at 22:39; Admin Dose 5 MG; Start 04/14/18 at 22:30 Zolpidem Tartrate (Ambien) 5 mg HS MAY REPEAT X 1 PRN PO INSOMNIA; Start 04/15/18 at 09:00 REMI FAJARDO MD Apr 15, 2018 15:27
--- NOTE | 2018-04-15 15:47 | CONS ---
Date/Time of Note Date/Time of Note DATE: 04/15/18 TIME: 15:43 Assessment/Plan Assessment/Plan Hospital Course IMPRESSION: 1. 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 History of percutaneous transluminal coronary angioplasty and stent placement in 09/2017. 3. Gastrointestinal bleed, presenting with melenic stools. 4. Hypertension- on lower end but tolerating antihypertensivers 5. Dyslipidemia. 6. Diabetes mellitus. Recc: -Tele -continue statin -Continue coreg/ACEI/procardia and [id number] BP closely -PER GI will need holding of asa/plavix x 1 week -Continue PPI -Follow BS closely -pnding FNA of possible tumor Result Diagram: 04/15/18 0546 04/15/18 0546 Results 24hrs Laboratory Tests Test 04/14/18 16:59 04/14/18 17:24 04/14/18 20:33 04/15/18 00:43 Bedside Glucose 242 H 238 H Troponin I < 0.012 < 0.012 Test 04/15/18 01:43 04/15/18 05:46 04/15/18 07:45 04/15/18 12:03 Bedside Glucose 113 282 H 153 White Blood 8.8 Count Red Blood Count 2.25 L Hemoglobin 6.8 *L Hematocrit 20.9 L Mean Corpuscular 92.9 Volume Mean Corpuscular 30.2 Hemoglobin Mean Corpuscular 32.5 Hemoglobin Tamia nt Red Cell 15.9 H Distribution Width Platelet Count 193 Mean Platelet 10.2 Volume Immature 3.400 H Granulocytes % Neutrophils % Segmented 74 Neutrophils % (Manual) Band Neutrophils 4 % (Manual) Lymphocytes % Lymphocytes % 14 L (Manual) Monocytes % Monocytes % 4 (Manual) Eosinophils % Eosinophils % 3 (Manual) Basophils % Myelocytes % 1 H (Manual) Nucleated Red 4 H Blood Cells % Immature 0.300 H Granulocytes # Neutrophils # Neutrophils # 6.5 (Manual) Band Neutrophils 0.3 # Lymphocytes 1.2 (Manual) Lymphocytes # Monocytes # Monocytes # 0.3 (Manual) Eosinophils # Basophils # Myelocytes # 0.0 Nucleated Red Blood Cells # Platelet NORMAL Estimate Polychromasia 2+ Anisocytosis 2+ Sodium Level 140 Potassium Level 4.2 Chloride Level 104 Carbon Dioxide 27 Level Anion Gap 9 Blood Urea 19 Nitrogen Creatinine 0.87 Est Glomerular > 60 Filtrat Rate mL/min Glucose Level 155 # Hemoglobin A1c 7.0 H Calcium Level 8.4 Phosphorus Level 3.7 Magnesium Level 1.8 Total Bilirubin 0.2 Direct Bilirubin 0.00 Indirect 0.2 Bilirubin Aspartate Amino 19 Transf (AST/SGOT ) Alanine 41 Aminotransferase (ALT/SGPT) Alkaline 32 L Phosphatase Troponin I < 0.012 Total Protein 4.8 L Albumin 2.9 L Globulin 1.90 Albumin/Globulin 1.52 Ratio Triglycerides 208 H Level Cholesterol 96 L Level LDL Cholesterol, 34 Calculated HDL Cholesterol 20 L Cholesterol/HDL 4.8 Ratio Free Thyroxine 3.61 Index Thyroxine (T4) 8.7 Triiodothyronine 41.5 H (T3) Uptake Consultation Date/Type/Reason Admit Date/Time Apr 13, 2018 at 19:28 Initial Consult Date 04/14/18 Type of Consult cardiology Reason for Consultation h/o stent Requesting Provider: FRANCISCA MARTIN DO Exam/Review of Systems Vital Signs Vitals Vital Signs Date Temp Pulse Resp B/P (MAP) Pulse Ox O2 O2 Flow FiO2 Time Delivery Rate 04/15/18 103 12:05 04/15/18 98.3 18 108/57 95 Room Air 11:36 (74) Intake and Output 04/14/18 04/14/18 04/15/18 1515:00 23:00 07:00 IntakeIntake Total 960 ml 700 ml OutputOutput Total 580 ml 1000 ml BalanceBalance 380 ml -300 ml Exam Review of Systems: CONSTITUTIONAL: No fevers, chills. PULMONARY: No sob CARDIOVASCULAR: No chest pain/palpitations GASTROINTESTINAL: No nausea/vomiting. GENITOURINARY: No hematuria/dysuria. MUSCULOSKELETAL: No myagias/arthalgias. PSYCHIATRIC: The patient denies depression. NEUROLOGIC: No weakness Constitutional: alert, oriented Psych: no complaints Head: normocephalic ENMT: mucosa pink and moist Neck: supple, jvd (9 cm water) Respiratory: clear to auscultation Cardiovascular: other (tachycardic) Gastrointestinal: soft Musculoskeletal: muscle tone (normal) Extremities: edema (none) Neurological: other (No focal deficits) Medications Medications Current Medications Sodium Chloride 1,000 ml @ 50 mls/hr Q20H IV Last administered on 04/15/18at 00:00; Admin Dose 50 MLS/HR; Start 04/14/18 at 01:25 IV Flush (NS 3 ml) 3 ml PER PROTOCOL IV ; Start 04/14/18 at 01:30 Ondansetron HCl (Zofran Inj) 4 mg Q6H PRN IV NAUSEA AND/OR VOMITING; Start 04/14/18 at 01:30 Atorvastatin Calcium (Lipitor) 40 mg QHS PO Last administered on 04/14/18at 20:36; Admin Dose 40 MG; Start 04/14/18 at 21:00 Carvedilol (Coreg) 12.5 mg BID NGT Last administered on 04/15/18at 08:59; Admin Dose 12.5 MG; Start 04/14/18 at 09:00 Glimepiride (Amaryl) 1 mg BID PO Last administered on 04/15/18at 08:59; Admin Dose 1 MG; Start 04/14/18 at 09:00 Lisinopril (Zestril) 20 mg BID PO Last administered on 04/15/18at 09:00; Admin Dose 20 MG; Start 04/14/18 at 09:00 Nifedipine (Procardia Xl) 30 mg DAILY PO Last administered on 04/15/18at 09:00; Admin Dose 30 MG; Start 04/14/18 at 09:00 Pantoprazole 80 mg/Sodium Chloride 100 ml @ 10 mls/hr Q10H IV Last administered on 04/15/18at 04:16; Admin Dose 10 MLS/HR; Start 04/14/18 at 02:00 Insulin Aspart (Novolog Insulin Pen) NOVOLOG *MILD* ALGORITHM WITH MEALS BEDTIME SC Last administered on 04/15/18at 12:22; Admin Dose 1 UNIT; Start 04/14/18 at 07:55 Miscellaneous Information 1 ea NOTE XX ; Start 04/14/18 at 02:00 Glucose (Glutose) 15 gm Q15M PRN PO DECREASED GLUCOSE; Start 04/14/18 at 02:00 Glucose (Glutose) 22.5 gm Q15M PRN PO DECREASED GLUCOSE; Start 04/14/18 at 02:00 Dextrose (D50w Syringe) 25 ml Q15M PRN IV DECREASED GLUCOSE; Start 04/14/18 at 02:00 Dextrose (D50w Syringe) 50 ml Q15M PRN IV DECREASED GLUCOSE; Start 04/14/18 at 02:00 Glucagon (Glucagen) 1 mg Q15M PRN IM DECREASED GLUCOSE; Start 04/14/18 at 02:00 Glucose (Glutose) 15 gm Q15M PRN BUCCAL DECREASED GLUCOSE; Start 04/14/18 at 02:00 Linagliptin (Tradjenta) 2.5 mg BID WITH MEALS PO Last administered on at 07:52; Admin Dose 2.5 MG; Start 04/14/18 at 07:55 Metformin HCl (Glucophage) 1,000 mg BID WITH MEALS PO Last administered on 04/15/18at 07:52; Admin Dose 1,000 MG; Start 04/14/18 at 07:55 Zolpidem Tartrate (Ambien) 5 mg HS PRN PO INSOMNIA Last administered on 04/14/18at 22:39; Admin Dose 5 MG; Start 04/14/18 at 22:30 Zolpidem Tartrate (Ambien) 5 mg HS MAY REPEAT X 1 PRN PO INSOMNIA; Start 04/15/18 at 09:00 JANET VAN Apr 15, 2018 15:47
--- NOTE | 2018-04-15 17:26 | RADRPT ---
Echocardiogram Report Patient Name: CHERELLE CASTRO Gender: Male Date: 1950 Study Date: 15-Apr-2018 [employer] M113: Joss Fair [facility] Location: 509-A Ref. Physician: JANET DENNY Quality: Adequate Procedures: Transthoracic echocardiogram with complete 2D, M-Mode, and doppler examination. Indications: h/o MO. 2D/M Mode Doppler Measurement Value Normal Ranges Measurement Value Normal Ranges LVIDd 2D 3.5 3.5 - 5.6 cm AV Peak Gavin 1.1 m/sec LVIDs 2D 2.3 2.1 - 4.1 cm AV Peak PG 5.0 mmHg FS 2D 33.0 % LVOT Peak Gavin 0.9 m/sec LVPWd 2D 1.0 0.6 - 1.1 cm LVOT Peak PG 3.0 mmHg IVSd 2D 1.0 0.6 - 1.1 cm MV E Peak Gavin 1.2 m/sec IVS/LVPW 2D 1.0 MV A Peak Gavin 1.0 m/sec AoR Diam 2D 2.7 2.0 - 3.7 cm MV E/A 1.1 LA/Ao 2D 1 0 - 1 MV Decel Time 134 msec EDV 2D 41.1 cm3 MV E/A 1.1 ESV 2D 12.3 cm3 LA Dimen 2D 3.8 2.3 - 4.0 cm Findings Left Ventricle: Normal left ventricular systolic function. Normal left ventricular cavity size. Normal left ventricular wall thickness. Ejection fraction is visually estimated at 5560 %. Tissue Doppler/Mitral Doppler indices are within normal limits. Right Ventricle: Normal right ventricular size. Normal right ventricular systolic function. Left Atrium: The left atrium is normal in size. Right Atrium: The right atrium is normal in size. Mitral Valve: Normal appearance of the mitral valve. Trace mitral regurgitation. Aortic Valve: Normal appearance of the aortic valve. No aortic regurgitation. Tricuspid Valve: Normal appearance of the tricuspid valve. There is trace tricuspid regurgitation. Pericardium: Normal pericardium with no significant pericardial effusion. Aorta: Normal aortic root. IVC: Normal size and normal respiratory collapse consistent with normal right atrial pressure. The IVC is not well visualized. Conclusions Normal left ventricular systolic function. Normal left ventricular cavity size. Normal left ventricular wall thickness. Ejection fraction is visually estimated at 55-60 %. Tissue Doppler/Mitral Doppler indices are within normal limits. Normal appearance of the mitral valve. Trace mitral regurgitation. Normal appearance of the aortic valve. No aortic regurgitation. Normal appearance of the tricuspid valve. There is trace tricuspid regurgitation. Electronically Signed By: Janet Denny 15-Apr-2018 17:25:40 -0800 Patient Name: CHERELLE CASTRO Study Date: 15-Apr-2018 [id number]
--- NOTE | 2018-04-15 19:00 | NUR ---
EOSS A&Ox4. Dx GI Bleed. Hemoglobin 6.8. 1 unit PRBC ordered and given. Bed brakes on, side rails up, call light within reach. All needs attended to. Stable vital signs. Will continue to monitor.
[2018-04-15] MEDS: ATORVASTATIN 40 MG TAB PO SCH (20:15)
[2018-04-16] VITALS: PULSE 95
[2018-04-16 00:15] VITALS: BP 123/66; PULSE 101; RESP 22
[2018-04-16] MEDS: SOD CHLORIDE 0.45% 1,000 ML IV SCH (00:15)
[2018-04-16 04:00] VITALS: PULSE 90
[2018-04-16 04:29] VITALS: BP 103/52; PULSE 105; RESP 20
[2018-04-16] MEDS: PANTOPRAZOLE IV 80 MG in SOD CHLORIDE 0.9% 100 ML IV SCH (04:37)
--- NOTE | 2018-04-16 06:44 | NUR ---
NO BM THIS SHIFT. NO SIGNIFICANT CHANGES. NO EPISODES ANY DISTRESS. VS REMAINS STABLE. ALL NEEDS ATTENDED. WILL ENDORSE TO AM SHIFT FOR CONTINUITY OF CARE
[2018-04-16] MEDS ORDERED: PANT40TA3 PO (07:36)
--- NOTE | 2018-04-16 07:40 | DS ---
Date/Time of Note Date/Time of Note DATE: 04/16/18 TIME: 07:37 Discharge Summary Admission/Discharge Info Admit Date/Time Apr 13, 2018 at 19:28 Discharge Date/Time Hospital Course HISTORY OF PRESENT ILLNESS: This is a 67-year-old male with a past medical hist ory of coronary artery disease status post PCI, history of diabetes, history of hypertension who presented to [facility] complaining of dark stools for the last seven days and bright red blood one day prior to admission. The patient states for the last seven days, he has noted dark tarry stools. He had no abdominal pain, no hemoptysis, and no hematemesis. The patient also noted one day prior to admission that he had bright red blood per rectum and as a result, he came to Emergency Room. Upon arrival, the patient had laboratory data that showed hemoglobin of 7.3. The patient was typed and crossed and transfused two units of PRBC. The patient was also placed on Protonix drip. 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 Pertinent positives stated in HPI, otherwise negative. PHYSICAL EXAMINATION: HEENT: Head normocephalic. NECK: Supple. HEART: Regular rate. LUNGS: Show diminished breath sounds at base. ABDOMEN: Soft, nontender to palpation, without rebound or guarding. EXTREMITIES: Negative for clubbing, cyanosis, edema. DERMATOLOGIC: No rashes. MUSCULOSKELETAL: No joint effusions. NEUROLOGIC: No focal deficits. additional diagnosis 1. Acute gastrointestinal bleed. Etiology may be secondary to peptic ulcer disease in conjunction with antiplatelet therapy. s/p EGD and transfusion. will switch protonix to PO 2. Anemia secondary to acute gastrointestinal bleed. 3. Coronary artery disease with the history of percutaneous coronary intervention and stent placement. Plan at this point is to hold antiplatelet therapy. 5. Hypertension. Continue current blood pressure regimen. 6. Diabetes. Continue current insulin regimen. 7. History of tobacco use. Continue to monitor. 8. History of chronic obstructive pulmonary disease. The patient is currently compensated. Continue medical management. Continue nebulizer, supplemental oxygen as needed. will dc home in stable condition diet and returning instructions were discussed Home Meds Active Scripts Ticagrelor* (Brilinta*) 90 Mg Tablet, 90 MG PO BID for 30 Days, TAB Prov:BRITT BETH MD 10/11/17 Glimepiride* (Glimepiride*) 1 Mg Tablet, 1 MG PO BID, #60 TAB Prov:BRITT BETH MD 10/11/17 Linagliptin-Metformin (Jentadueto) 2.5-1,000 Mg Tablet, 1 TAB PO BID for 60 D ays, TAB Prov:BRITT BETH MD 10/11/17 Nifedipine (Procardia Xl) 30 Mg Tab.er.24, 30 MG PO DAILY for 30 Days, TAB Prov:BRITT BETH MD 10/11/17 Lisinopril* (Lisinopril*) 20 Mg Tablet, 20 MG PO BID, #60 TAB Prov:BRITT BETH MD 10/11/17 Carvedilol* (Carvedilol*) 12.5 Mg Tablet, 12.5 MG NGT BID for 30 Days, TAB Prov:BRITT BETH MD 10/11/17 Reported Medications Clopidogrel Bisulfate* (Clopidogrel Bisulfate*) 75 Mg Tablet, 75 MG PO DAILY, #30 TAB 04/13/18 Atorvastatin* (Atorvastatin*) 40 Mg Tablet, 40 MG PO QHS, #30 TAB 04/13/18 Meloxicam* (Mobic*) 15 Mg Tablet, 15 MG PO DAILY, #30 TAB 04/13/18 Aspirin (Low Dose Aspirin) 81 Mg Tablet.dr, 81 MG PO DAILY, #30 TAB 10/10/17 Discontinued Reported Medications Lorazepam* (Lorazepam*) 0.5 Mg Tablet, 0.5 MG PO Q4 PRN for ANXIETY, TAB 10/10/17 Nitroglycerin* (Nitrostat*) 0.4 Mg Tab.subl, 0.4 MG SL Q5MIN PRN for CHEST PAIN, BOTTLE 10/10/17 Acetaminophen* (Acetaminophen*) 650 Mg Tablet, 650 MG PO Q6H PRN for PAIN LEVEL 1-3, #30 TAB 10/10/17 Zolpidem Tartrate* (Zolpidem Tartrate*) 5 Mg Tablet, 5 MG PO QHS PRN for INSOMNIA, #30 TAB 10/10/17 Discontinued Scripts Atorvastatin* (Atorvastatin*) 80 Mg Tablet, 80 MG PO HS for 30 Days, TAB Prov:BRITT BETH MD 10/11/17 [Nicotine (14 Mg/24 Hr)] 1 PATCH PATCH No Conflict Check, 1 PATCH TRANSDERM DAILY for 30 Days Prov:BRITT BETH MD 10/11/17 Primary Care Provider Britt Beth MD Time spent on discharge: > 30 minutes Pending Labs Laboratory Tests Test 04/15/18 07:45 04/15/18 12:03 04/15/18 17:11 04/15/18 20:15 Bedside 282 153 269 139 Glucose mg/dL (70-220) mg/dL (70-220) mg/dL (70-220) mg/dL (70-220) Test 04/16/18 06:02 White Blood 8.2 Count 10^3/ul (4.8-10 .8) Red Blood 2.61 Count 10^6/ul (4.70-6 .10) Hemoglobin 8.1 g/dl (14.0-18.0 ) Hematocrit 23.9 % (42.0-52.0) Mean 91.6 Corpuscular fl (82.0-101.0) Volume Mean 31.0 Corpuscular pg (29.0-33.0) Hemoglobin Mean 33.9 Corpuscular g/dl (32.0-37.0 Hemoglobin Conc ) ent Red Cell 16.2 Distribution % (11.5-14.5) Width Platelet Count 195 10^3/UL (140-41 5) Mean Platelet 10.1 Volume fl (7.4-10.4) Immature 3.900 Granulocytes % % (0.001-0.429) Neutrophils % 64.5 % (39.0-77.0) Lymphocytes % 20.2 % (15.0-51.0) Monocytes % 10.1 % (0.0-11.0) Eosinophils % 1.1 % (0.0-7.0) Basophils % 0.2 % (0.0-2.0) Nucleated Red 0.6 Blood Cells % /100WBC (0.0-0. 0) Immature 0.320 Granulocytes # 10^3/ul (0.0-0. 031) Neutrophils # 5.3 10^3/ul (1.6-7. 5) Lymphocytes # 1.7 10^3/ul (0.8-2. 9) Monocytes # 0.8 10^3/ul (0.3-0. 9) Eosinophils # 0.1 10^3/ul (0.0-0. 5) Basophils # 0.0 10^3/ul (0.0-0. 1) Nucleated Red 0.1 Blood Cells # 10^3/ul (0.0-0. 0) CHRISTIANO RAE DO Apr 16, 2018 07:40
[2018-04-16 08:11] VITALS: BP 144/70; PULSE 90; RESP 20
[2018-04-16 08:16] VITALS: PULSE 92
[2018-04-16] MEDS: LISINOPRIL 20 MG TAB PO SCH (08:25)
[2018-04-16] MEDS: NIFEdipine (XL) 30 MG TAB PO SCH (08:25)
[2018-04-16] MEDS: GLIMEPIRIDE 2 MG TAB PO SCH (08:27)
[2018-04-16] MEDS: LINAGLIPTIN 5 MG TABLET PO SCH (08:27)
[2018-04-16] MEDS: metFORMIN 500 MG TAB PO SCH (08:27)
[2018-04-16] MEDS: INSULIN ASPART [NOVOLOG] 3 ML PEN SC SCH (08:35)
--- NOTE | 2018-04-16 08:43 | RADRPT ---
Vent Rate: 104 bpm RR Interval: 0 msec MN Interval: 168 msec QRS Duration: 84 msec QT Interval: 344 msec QTC Interval: 452 msec P-R-T [place]: 46 - 7 - 26 degrees Sinus tachycardia Otherwise normal ECG Electronically Signed By: Ceferino Ryan [phone]
--- NOTE | 2018-04-16 09:30 | NUR ---
DISCHARGED Patient discharged home. alarm security or surveillance monitor, ID band, and peripheral IV removed. Family at bedside. Discharge packet given and explained. Disposition papers signed by patient. Sent with all belongings. Refused wheelchair and ambulated self of floor. Stable vital signs.
--- NOTE | 2018-04-16 11:03 | CONS ---
Date/Time of Note Date/Time of Note DATE: 04/16/18 TIME: 11:03 Assessment/Plan Assessment/Plan Assessment/Plan Assessment/Plan Hospital Course 67 yo male on Brillinta and ASA presents for melena x 7 days 1. Upper GI bleed manifested through melanotic stools -pt on plavix last dose 04/12) and asa 2. Anemia secondary to GI bleed 3. Diabetes mellitus 4. Hypertension 5. H/O NSTEMI in September 2017 with PCI placement x 2 6. COPD Plan Continue double dose of PPI We will add Carafate to the present regimen Monitor H&H closely No aspirin or Plavix for the time being Follow-up in the clinic in 1 week discussed with the patient and also son Result Diagram: 04/16/18 0602 04/16/18 0602 Results 24hrs Laboratory Tests Test 04/15/18 12:03 04/15/18 17:11 04/15/18 20:15 04/16/18 06:02 Bedside Glucose 153 269 H 139 White Blood 8.2 Count Red Blood Count 2.61 L Hemoglobin 8.1 L Hematocrit 23.9 L Mean Corpuscular 91.6 Volume Mean Corpuscular 31.0 Hemoglobin Mean Corpuscular 33.9 Hemoglobin Tamia nt Red Cell 16.2 H Distribution Width Platelet Count 195 Mean Platelet 10.1 Volume Immature 3.900 H Granulocytes % Neutrophils % 64.5 Lymphocytes % 20.2 Monocytes % 10.1 Eosinophils % 1.1 Basophils % 0.2 Nucleated Red 0.6 H Blood Cells % Immature 0.320 H Granulocytes # Neutrophils # 5.3 Lymphocytes # 1.7 Monocytes # 0.8 Eosinophils # 0.1 Basophils # 0.0 Nucleated Red 0.1 H Blood Cells # Sodium Level 140 Potassium Level 3.9 Chloride Level 104 Carbon Dioxide 27 Level Anion Gap 9 Blood Urea 13 Nitrogen Creatinine 0.92 Est Glomerular > 60 Filtrat Rate mL/min Glucose Level 169 Calcium Level 8.5 Test 04/16/18 08:18 Bedside Glucose 195 Consultation Date/Type/Reason Admit Date/Time Apr 13, 2018 at 19:28 Initial Consult Date Requesting Provider: FRANCISCA MARTIN DO 24 HR Interval Summary Constitutional: no complaints, improved Exam/Review of Systems Vital Signs Vitals Vital Signs Date Temp Pulse Resp B/P (MAP) Pulse Ox O2 O2 Flow FiO2 Time Delivery Rate 04/16/18 92 08:16 04/16/18 98.8 20 144/70 94 Room Air 08:11 (94) Intake and Output 04/15/18 04/15/18 04/16/18 1515:00 23:00 07:00 IntakeIntake Total 1160 ml 600 ml OutputOutput Total 700 ml 850 ml BalanceBalance 460 ml -250 ml Exam Constitutional: alert, oriented, well developed Psych: no complaints, nl mood/affect Head: normocephalic, atraumatic Eyes: nl conjunctiva, EOMI, nl lids, nl sclera, PERRL ENMT: nl external ears & nose, nl lips & teeth, nl nasal mucosa & septum Neck: supple, non-tender Respiratory: clear to auscultation, normal air movement Cardiovascular: regular rate and rhythm, nl pulses Gastrointestinal: soft, nl liver, spleen, non-tender Musculoskeletal: nl extremities to inspection, nl gait and stance Extremities: normal pulses Neurological: DIE SINKER II-XII intact, nl mental status, nl speech, nl strength Skin: nl turgor; No rash or lesions Lymph: nl lymph nodes REMI FAJARDO MD Apr 16, 2018 11:03
== END 2018-04-16 09:55 | disposition home or self-care (01) | DRG 378 ==
LOC: E/R 16:04 → TEL 19:28
PROVIDERS: ADMIT Internal Medicine; ATTEND Internal Medicine
PROC: 30233N1 Transfusion of Nonautologous Red Blood Cells into Peripheral Vein, Percutaneous Approach (ICD-10-PCS; 2018-04-13)
PROC: 0DJ08ZZ Inspection of Upper Intestinal Tract, Via Natural or Artificial Opening Endoscopic (ICD-10-PCS; principal; 2018-04-14 14:30)
DX: K26.0 Acute duodenal ulcer with hemorrhage (principal); D62 Acute posthemorrhagic anemia; R65.10 Systemic inflammatory response syndrome (SIRS) of non-infectious origin without acute organ dysfunction; K29.81 Duodenitis with bleeding; K31.89 Other diseases of stomach and duodenum; K29.00 Acute gastritis without bleeding; I10 Essential (primary) hypertension; J44.9 Chronic obstructive pulmonary disease, unspecified; I25.2 Old myocardial infarction; F17.210 Nicotine dependence, cigarettes, uncomplicated; E11.9 Type 2 diabetes mellitus without complications; E78.5 Hyperlipidemia, unspecified; Z79.02 Long term (current) use of antithrombotics/antiplatelets; Z79.82 Long term (current) use of aspirin; Z95.5 Presence of coronary angioplasty implant and graft
CPT/HCPCS: 36415; 36430; 80048; 80053; 80061; 81003; 82962; 83036; 83735; 84100; 84436; 84479; 84484; 85025; 85610; 85730; 86850; 86900; 86901; 86920; 93005; 93306; 96365; 96366; C9113; J1815; J7030; J7040; P9016